=== PATIENT | female | born 1950 | race Caucasian/White ===

== ENCOUNTER 2018-12-31 21:57 | Emergency (ER) | payer BC ==
[~2018-12-31] VITALS: Ht 144.8 cm; Wt 50.0 kg
[2018-12-31 23:18] LABS: BASO % 0.5 % (0.0-2.0); EOS % 0.5 % (0-4.0); GRAN # 5.9 (1.4-6.5); GRAN % 78.5 % (42.2-75.2); HEMATOCRIT 41.3 % (37.0-47.0); HEMOGLOBIN 14.2 g/dl (12.5-16.0); LYMPH # 1.2 (1.2-3.4); LYMPH % 15.9 % (20.0-51.0); MEAN CELL VOLUME 95 fl (80.0-100.0); MEAN CORPUSCULAR HEMOGLOBIN 33 pg (27.0-31.0); MEAN CORPUSCULAR HGB CONC 34 g/dl (33.0-37.0); MEAN PLATELET VOLUME 11.7 fl (7.4-10.4); MONO # 0.3 (0.1-0.6); MONO % 3.7 % (1.7-9.3); PLATELET COUNT 187 K/mm3 (130-400); RED BLOOD COUNT 4.36 M/mm3 (4.10-5.30)
[2018-12-31 23:29] LABS: ALANINE AMINOTRANSFERASE 29 U/L (9-52); ALBUMIN 4.3 gm/dL (3.5-5.0); ALKALINE PHOSPHATASE 104 U/L (50-136); ANION GAP 9 mmol/L (7-16); AST,SGOT 31 U/L (15-37); BILIRUBIN,TOTAL 0.6 mg/dL (0.0-1.0); BLOOD UREA NITROGEN 16 mg/dL (7-17); CALCIUM 9.7 mg/dL (8.4-10.2); CARBON DIOXIDE 28 mmol/L (22-30); CHLORIDE 104 mmol/L (98-107); CREATININE, serum 0.64 (0.52-1.25); GLUCOSE 152 mg/dL (74-106); LIPASE 136 U/L (23-300); POTASSIUM 3.8 mmol/L (3.4-5.0); SODIUM 141 mmol/L (137-145); TOTAL PROTEIN 7.4 gm/dL (6.4-8.2)
[2018-12-31 23:31] LABS: C-REACTIVE PROTEIN < 0.5 mg/dL (0.0-0.9)
[2018-12-31] MEDS ORDERED: ZOFRAN ODT8 MG PO (23:46)
[2019-01-01 00:08] LABS: TROPONIN-I < 0.012 ng/mL (0.000-0.035)
[2019-01-01] MEDS ORDERED: PHENERGAN 25 TA25 MG PO (01:55)
[2019-01-01 02:05] VITALS: BP 112/67; PULSE 90; TEMP 98.4
== END 2019-01-01 02:21 | disposition home or self-care (01) ==
LOC: COL.ER 21:57
PROVIDERS: Emergency Medicine
DX: R11.2 Nausea with vomiting, unspecified (principal); I10 Essential (primary) hypertension; E78.5 Hyperlipidemia, unspecified
CPT/HCPCS: J2405; J2765; J7030

== ENCOUNTER → 2020-08-02 | Outpatient (CLI) | payer MEDICARE, BC ==
[~2020-08-02] MED LIST: PHENERGAN 25 TA25 MG PO; ZOFRAN ODT4 MG PO; ZOFRAN ODT8 MG PO
== END ==
LOC: COL.RAD 10:30
DX: G31.9 Degenerative disease of nervous system, unspecified (principal); Z98.890 Other specified postprocedural states; I67.82 Cerebral ischemia; H53.9 Unspecified visual disturbance; Z86.79 Personal history of other diseases of the circulatory system
CPT/HCPCS: A9585

== ENCOUNTER 2020-08-25 20:12 | Emergency (ER) | payer MEDICARE, BC ==
[~2020-08-25] VITALS: Ht 144.8 cm; Wt 49.5 kg
[~2020-08-25 20:12] MED LIST changes: -ZOFRAN ODT4 MG PO
[2020-08-25 20:27] VITALS: TEMP 98.2
[2020-08-25 20:51] LABS: BASO % 0.4 % (0.0-2.0); EOS % 0.2 % (0-4.0); GRAN # 9.1 (1.4-6.5); HEMOGLOBIN 14.2 g/dl (12.5-16.0); LYMPH % 9.4 % (20.0-51.0); MEAN CELL VOLUME 92 fl (80.0-100.0); MEAN CORPUSCULAR HEMOGLOBIN 32 pg (27.0-31.0); MEAN CORPUSCULAR HGB CONC 35 g/dl (33.0-37.0); MEAN PLATELET VOLUME 11.7 fl (7.4-10.4); MONO # 0.2 (0.1-0.6); MONO % 1.6 % (1.7-9.3); PLATELET COUNT 195 K/mm3 (130-400); RED BLOOD COUNT 4.47 M/mm3 (4.10-5.30); REDCELL DISTRIBUTION WIDTH-CV 12.5 % (11.5-14.5)
[2020-08-25 21:03] LABS: ALANINE AMINOTRANSFERASE 27 U/L (4-34); ALBUMIN 4.2 gm/dL (3.5-5.0); ALKALINE PHOSPHATASE 115 U/L (50-136); ANION GAP 5 mmol/L (7-16); AST,SGOT 33 U/L (15-37); BILIRUBIN,TOTAL 0.7 mg/dL (0.0-1.0); BLOOD UREA NITROGEN 17 mg/dL (7-17); CALCIUM 9.2 mg/dL (8.4-10.2); CARBON DIOXIDE 27 mmol/L (22-30); CHLORIDE 108 mmol/L (98-107); CREATININE, serum 0.53 (0.52-1.25); GLUCOSE 138 mg/dL (74-106); LIPASE 135 U/L (23-300); SODIUM 140 mmol/L (137-145); TOTAL PROTEIN 7.3 gm/dL (6.4-8.2)
[2020-08-25 21:04] LABS: C-REACTIVE PROTEIN < 0.5 mg/dL (0.0-0.9)
[2020-08-25] MEDS ORDERED: ZOFRAN ODT4 MG PO (22:25)
[2020-08-25 23:23] VITALS: BP 114/57; PULSE 73
== END 2020-08-25 23:30 | disposition home or self-care (01) ==
LOC: COL.ER 20:12
PROVIDERS: Emergency Medicine
DX: R11.2 Nausea with vomiting, unspecified (principal); I10 Essential (primary) hypertension
CPT/HCPCS: J2405; J2550; J7030